=== PATIENT | male | born 1990 | race Caucasian/White ===

== ENCOUNTER 2019-09-25 03:19 | Emergency (ER) | payer MEDICAID ==
[~2019-09-25] VITALS: Ht 182.9 cm; Wt 77.3 kg
[2019-09-25 03:19] VITALS: BP 146/81
[~2019-09-25 03:19] MED LIST: OXYC-158 PO
[2019-09-25 04:28] LABS: ANION GAP 7 mmol/L (8-16); CALCIUM, TOTAL 10.2 mg/dL (8.8-10.5); CARBON DIOXIDE 31 mmol/L (22-29); CHLORIDE 102 mmol/L (98-107); CREATININE 1.09 mg/dL (0.60-1.30); GLOMERULAR FILTR. RATE CALC > 60 mL/min (>60); GLUCOSE,RANDOM 123 mg/dL (70-110); POTASSIUM 4.8 mmol/L (3.5-5.1); SODIUM SERUM 140 mmol/L (136-145); UREA NITROGEN, BLOOD 14 mg/dL (7-18)
[2019-09-25] MEDS ORDERED: LORazepam 2 MG TABLET PO ONE (04:30)
[2019-09-25 04:34] LABS: ALANINE AMINOTRANSFERASE 76 U/L (12-78); ALKALINE PHOSPHATASE 57 U/L (46-116); ASPARTATE AMINOTRANSFERASE 50 U/L (15-37); BILIRUBIN,TOTAL 0.5 mg/dL (0.1-1.0); TOTAL PROTEIN, SERUM 7.7 g/dL (6.4-8.2)
[2019-09-25 04:41] LABS: BASOPHILS % (AUTO) 0.4 % (0.0-2.0); EOSINOPHILS % (AUTO) 1.9 % (1.0-6.0); HEMATOCRIT 47.7 % (41-53); HEMOGLOBIN 15.6 g/dL (13.5-17.5); LYMPHOCYTES # (AUTO) 2.3 K/uL (1.0-4.8); LYMPHOCYTES % (AUTO) 26.5 % (22.0-44.0); MEAN CORPUSCULAR HEMOGLOBIN 30.4 pg (26.0-34.0); MEAN CORPUSCULAR HGB CONC 32.8 G/dL (31.0-37.0); MEAN CORPUSCULAR VOLUME 93 fL (80-100); MONOCYTES # (AUTO) 0.9 K/uL (0.1-1.0); MONOCYTES % (AUTO) 10.3 % (2.0-9.0); NEUTROPHILS # (AUTO) 5.4 K/uL (1.8-7.7); NEUTROPHILS % (AUTO) 60.9 % (40.0-70.0); PLATELET COUNT (AUTO) 248 K/uL (150-450); RED BLOOD CELL COUNT(AUTO) 5.15 MIL/uL (4.50-5.90); RED CELL DISTRIBUTION WIDTH 13.8 % (11.5-14.5)
== END 2019-09-25 05:24 | disposition home or self-care (01) ==
LOC: EMS 03:21
DX: F15.90 Other stimulant use, unspecified, uncomplicated (principal); R44.1 Visual hallucinations; F17.210 Nicotine dependence, cigarettes, uncomplicated
CPT/HCPCS: 36415; 80053; 85025; 99283; G0480

== ENCOUNTER 2019-10-08 19:36 | Emergency (ER) | payer MEDICAID ==
[~2019-10-08] VITALS: Ht 182.9 cm; Wt 79.5 kg
[2019-10-08 20:33] VITALS: BP 119/76
== END 2019-10-08 21:00 | disposition home or self-care (01) ==
LOC: EMS 19:36
DX: Z11.59 Encounter for screening for other viral diseases (principal); Z20.828 Contact with and (suspected) exposure to other viral communicable diseases
CPT/HCPCS: 99283; U0003

== ENCOUNTER 2019-12-18 11:06 | Emergency (ER) | payer MEDICAID ==
[~2019-12-18] VITALS: Ht 175.3 cm; Wt 72.7 kg
[2019-12-18] MEDS ORDERED: KETOROLAC TROMETHAMINE 10 MG TABLET PO ONE (11:45)
[2019-12-18 13:20] VITALS: BP 126/68
== END 2019-12-18 13:43 | disposition home or self-care (01) ==
LOC: EMS 11:11
DX: S62.334A Displaced fracture of neck of fourth metacarpal bone, right hand, initial encounter for closed fracture (principal); F17.210 Nicotine dependence, cigarettes, uncomplicated; F15.90 Other stimulant use, unspecified, uncomplicated; W01.0XXA Fall on same level from slipping, tripping and stumbling without subsequent striking against object, initial encounter; Y93.89 Activity, other specified; Y92.89 Other specified places as the place of occurrence of the external cause; Y99.8 Other external cause status
CPT/HCPCS: 96372

== ENCOUNTER 2019-12-20 13:23 | Emergency (ER) | payer MEDICAID ==
[~2019-12-20] VITALS: Ht 182.9 cm; Wt 75.0 kg
[2019-12-20] MEDS ORDERED: HYDR-4398 PO (13:28)
[2019-12-20] MEDS ORDERED: TraMADol HCL 50 MG TABLET PO ONE (14:30)
[2019-12-20 14:52] VITALS: BP 122/65
== END 2019-12-20 15:03 | disposition home or self-care (01) ==
LOC: EMS 13:29
DX: M79.641 Pain in right hand (principal); F17.210 Nicotine dependence, cigarettes, uncomplicated; F19.90 Other psychoactive substance use, unspecified, uncomplicated

== ENCOUNTER 2020-02-26 09:22 | Emergency (ER) | payer MEDICAID, OTHER ==
[~2020-02-26] VITALS: Ht 182.9 cm; Wt 72.7 kg
[~2020-02-26 09:22] MED LIST changes: +HYDR-4398 PO; -OXYC-158 PO
[2020-02-26 09:30] VITALS: BP 106/67
[2020-02-26] MEDS ORDERED: CLINDAMYCIN HCL 150 MG CAPSULE PO ONE (10:00)
[2020-02-26] MEDS ORDERED: POLYMYXIN B/TRIMETHOPRIM 10 ML OPHTHALMIC SOLUTION OS ONE (10:00)
[2020-02-26 11:08] LABS: COVID AG,FIA SOURCE NASOPHARYNGEAL
== END 2020-02-26 10:31 | disposition home or self-care (01) ==
LOC: EMS 09:27
DX: H10.89 Other conjunctivitis (principal); L03.213 Periorbital cellulitis; F17.210 Nicotine dependence, cigarettes, uncomplicated; F15.90 Other stimulant use, unspecified, uncomplicated; Z79.899 Other long term (current) drug therapy; Z20.822 Contact with and (suspected) exposure to COVID-19
CPT/HCPCS: 87426; 99283; C9803; U0003

== ENCOUNTER 2020-07-26 21:34 | Emergency (ER) | payer OTHER ==
[~2020-07-26] VITALS: Ht 182.9 cm; Wt 68.2 kg
[2020-07-26 21:35] VITALS: BP 132/77
== END 2020-07-26 23:28 | disposition left against medical advice (07) ==
LOC: EMS 21:34
DX: M25.561 Pain in right knee (principal); Z53.21 Procedure and treatment not carried out due to patient leaving prior to being seen by health care provider

== ENCOUNTER 2020-10-10 19:03 | Emergency (ER) | payer OTHER ==
[~2020-10-10] VITALS: Ht 182.9 cm; Wt 68.2 kg
[2020-10-10 19:05] VITALS: BP 108/76
[2020-10-10 19:31] LABS: COVID AG,FIA SOURCE NASAL SWAB
== END 2020-10-10 20:11 | disposition home or self-care (01) ==
LOC: EMS 19:05
DX: J02.9 Acute pharyngitis, unspecified (principal); R09.81 Nasal congestion; F17.210 Nicotine dependence, cigarettes, uncomplicated; F12.90 Cannabis use, unspecified, uncomplicated; F19.90 Other psychoactive substance use, unspecified, uncomplicated; Z20.822 Contact with and (suspected) exposure to COVID-19
CPT/HCPCS: 87426; 99283; U0003

== ENCOUNTER 2023-09-22 10:15 | Emergency (ER) | payer OTHER ==
[~2023-09-22] VITALS: Ht 183.5 cm; Wt 81.8 kg
[2023-09-22 10:15] VITALS: BP 148/82; PULSE 80; RESP 14; TEMP 98
== END 2023-09-22 11:56 | disposition left against medical advice (07) ==
LOC: EMS 10:15
DX: T40.2X1A Poisoning by other opioids, accidental (unintentional), initial encounter (principal); F17.210 Nicotine dependence, cigarettes, uncomplicated; F12.90 Cannabis use, unspecified, uncomplicated; F15.10 Other stimulant abuse, uncomplicated; Y92.89 Other specified places as the place of occurrence of the external cause
CPT/HCPCS: 99283; Z7502

== ENCOUNTER 2023-10-10 10:51 | Emergency (ER) | payer OTHER ==
[~2023-10-10] VITALS: Ht 182.9 cm; Wt 72.7 kg
[2023-10-10 10:57] VITALS: BP 130/75; PULSE 100; RESP 18; TEMP 98.9; O2SAT 100
== END 2023-10-10 11:25 | disposition left against medical advice (07) ==
LOC: EMS 10:51
DX: S01.81XA Laceration without foreign body of other part of head, initial encounter (principal); T40.411A Poisoning by fentanyl or fentanyl analogs, accidental (unintentional), initial encounter; F17.210 Nicotine dependence, cigarettes, uncomplicated; F12.90 Cannabis use, unspecified, uncomplicated; F15.10 Other stimulant abuse, uncomplicated; X58.XXXA Exposure to other specified factors, initial encounter; Y93.89 Activity, other specified; Y92.89 Other specified places as the place of occurrence of the external cause; Y99.8 Other external cause status
CPT/HCPCS: 99283